=== PATIENT | male | born 1975 | race Caucasian/White ===

== ENCOUNTER 2018-04-09 12:45 | Emergency (ER) | payer OTHER ==
[2018-04-09] MEDS ORDERED: Sodium Chloride 0.9% 1,000 ML IV ONE (13:32)
--- NOTE | 2018-04-09 13:37 | EDM.PDOC ---
ED HPI GENERAL MEDICAL PROBLEM - General Chief Complaint: Chest Pain Stated Complaint: CHEST PAIN Time Seen by Provider: 04/09/18 13:12 Source of Information: Reports: Patient History Limitations: Reports: No Limitations - History of Present Illness INITIAL COMMENTS - FREE TEXT/NARRATIVE: Patient presents with pain in right anterior chest that started about 45 minutes before ER arrival and was preceded by feeling light-headed and nauseated. 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 The chest pain is exacerbated by taking a deep breath and rates it at 8/10 when it was the worst. Currently 6/10 and less between breaths. He also has a headache. He isn't good at drinking water but drinks Coke and Gatorade. Right Chest Pain Score (Numeric/FACES): 8 - Related Data Allergies Allergy/AdvReac Type Severity Reaction Status Date / Time levofloxacin [From Levaquin] Allergy Hives Verified 04/09/18 13:06 Home Meds: Home Meds Prazosin HCl [Prazosin] 2 mg PO BEDTIME 04/09/18 [History] Sertraline [Zoloft] 100 mg PO DAILY 04/09/18 [History] amLODIPine Besylate [Amlodipine Besylate] 10 mg PO DAILY 04/09/18 [History] carBAMazepine [Carbamazepine] 400 mg PO BIDMEALS 04/09/18 [History] ED ROS GENERAL - Review of Systems Review Of Systems: See Below Constitutional: Denies: Fever, Chills, Weakness HEENT: Reports: No Symptoms Respiratory: Denies: Shortness of Breath, Cough Cardiovascular: Reports: Chest Pain, Blood Pressure Problem, Lightheadedness. Denies: Syncope Endocrine: Denies: Fatigue GI/Abdominal: Reports: Nausea. Denies: Abdominal Pain, Constipation, Diarrhea, Vomiting : Denies: Dysuria, Flank Pain Musculoskeletal: Reports: No Symptoms Skin: Denies: Cyanosis, Jaundice, Mottled, Pallor, Diaphoresis Neurological: Reports: Headache. Denies: Confusion, Seizure, Syncope, Difficulty Walking, Weakness, Change in Speech Psychiatric: Denies: Agitation, Anxiety, Confusion ED EXAM, GENERAL - Physical Exam Exam: See Below Exam Limited By: No Limitations General Appearance: Alert, WD/WN, No Apparent Distress Eye Exam: Bilateral Eye: EOMI, Normal Inspection, PERRL Ears: Normal External Exam, Hearing Grossly Normal Nose: Normal Inspection, No Blood Throat/Mouth: Normal Inspection, Normal Lips, Normal Voice, No Airway Compromise Head: Atraumatic, Normocephalic Neck: Normal Inspection, Full Range of Motion Respiratory/Chest: No Respiratory Distress, No Accessory Muscle Use, Decreased Breath Sounds (right lung), Other (Palpation of right chest slightly superior to nipple reproduces his presenting chest pain although not as sharp as when taking a deep breath. Left chest non-tender.). No: Crackles, Rales, Rhonchi, Wheezing, Stridor Cardiovascular: Normal Peripheral Pulses, Regular Rate, Rhythm, No Murmur GI/Abdominal: Normal Bowel Sounds, Soft, Non-Tender, No Organomegaly, No Distention, No Abnormal Bruit Back Exam: Normal Inspection, Full Range of Motion. No: CVA Tenderness (L), CVA Tenderness (R) Extremities: Normal Inspection, Normal Range of Motion Neurological: Alert, Oriented, Normal Cognition, No Motor/Sensory Deficits Psychiatric: Normal Affect, Normal Mood Skin Exam: Warm, Dry, Intact, Normal Color (except for current sunburn on face, neck and ears), No Rash Course - Vital Signs Last Recorded V/S: Last Vital Signs Temp 98.5 F 04/09/18 13:14 Pulse 92 04/09/18 13:14 Resp 16 04/09/18 13:14 BP 150/92 H 04/09/18 13:14 Pulse Ox 96 04/09/18 13:14 - Orders/Labs/Meds Orders: Active Orders 24 hr Category Date Time Status EKG Documentation Completion [RC] ASDIRECTED Care 04/09/18 14:09 Ordered Chest 2V [CR] Stat Exams 04/09/18 13:30 Ordered EKG 12 Lead [EK] Routine Ther 04/09/18 14:08 Ordered Labs: Laboratory Tests 04/09/18 04/09/18 04/09/18 Range/Units 13:05 13:05 13:05 WBC 8.2 (5.0-10.0) 10^3/uL RBC 4.37 L (4.50-6.00) 10^6/uL Hgb 14.2 (13.0-17.0) g/dL Hct 41.0 (40.0-52.0) % MCV 93.7 H (82.0-92.0) fL MCH 32.4 H (27.0-31.0) pg MCHC 34.6 (32.0-36.0) g/dL RDW 12.3 (11.5-14.5) % Plt Count 259 (150-300) 10^3/uL MPV 7.2 L (7.4-10.4) fL Neut % (Auto) 62.7 (50.0-70.0) % Lymph % (Auto) 26.7 (20.0-40.0) % Runnels % (Auto) 8.3 H (2.0-8.0) % Eos % (Auto) 1.7 (1.0-3.0) % Baso % (Auto) 0.6 (0.0-1.0) % Neut # (Auto) 5.2 (2.5-7.0) 10^3/uL Lymph # (Auto) 2.2 (1.0-4.0) 10^3/uL Runnels # (Auto) 0.7 (0.1-0.8) 10^3/uL Eos # (Auto) 0.1 (0.1-0.3) 10^3/uL Baso # (Auto) 0.0 (0.0-0.1) 10^3/uL D-Dimer, Quantitative < 100 (<400) ng/mL Sodium 139 (136-145) mmol/L Potassium 3.2 L (3.3-5.3) mmol/L Chloride 101 (98-115) mmol/L Carbon Dioxide 27.3 (21.0-32.0) mmol/L BUN 22 (6-25) mg/dL Creatinine 1.04 (0.51-1.17) mg/dL Est Cr Clr Drug Dosing 103.63 mL/min Estimated GFR (MDRD) > 60 mL/min Glucose 123 H (70-110) mg/dL Calcium 8.5 L (8.7-10.3) mg/dL Meds: Medications Discontinued Medications Generic Name Dose Route Start Last Admin Trade Name Freq PRN Reason Stop Dose Admin Sodium Chloride 1,000 mls @ 999 mls/hr 04/09/18 13:32 04/09/18 13:39 Normal Saline IV 04/09/18 14:32 999 mls/hr .BOLUS ONE Administration - Re-Assessments/Exams Free Text/Narrative Re-Assessment/Exam: 04/09/18 14:30 CXR shows no sign of pneumothorax, effusion or infiltrate. No findings consistent with cardiac etiology. Headache and chest pain are gone now since the fluids finished up. Discussed findings and recommendations. 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 Patient discharged in stable condition. Departure - Departure Time of Disposition: 14:37 Disposition: Home, Self-Care 01 Condition: Good Clinical Impression: Anterior chest wall pain, Dehydration Heat exhaustion Qualifiers: Encounter type: initial encounter Qualified Code(s): T67.5XXA - Heat exhaustion , unspecified, initial encounter Headache Qualifiers: Headache type: unspecified Headache chronicity pattern: acute headache Intractability: not intractable Qualified Code(s): R51 - Headache - Discharge Information Instructions: Heat Exhaustion Information Referrals: PCP,Not In Area [Primary Care Provider] - Forms: ED Department Discharge Additional Instructions: 1. Drink 8-12 cups of water daily. Avoid more than one Gatorade or Coke a day. 2. Try to minimize sun exposure and make sure to get out of the sun and heat if symptoms return. 3. Don't go back to work today but you may return tomorrow if feeling okay. 4. Follow up with your PCP on Sunday if you are not feeling completely well. 5. Return to ER as needed. - My Orders Last 24 Hours: My Active Orders 04/09/18 13:30 Chest 2V [CR] Stat 04/09/18 14:08 EKG 12 Lead [EK] Routine 04/09/18 14:09 EKG Documentation Completion [RC] ASDIRECTED - Assessment/Plan Last 24 Hours: My Active Orders 04/09/18 13:30 Chest 2V [CR] Stat 04/09/18 14:08 EKG 12 Lead [EK] Routine 04/09/18 14:09 EKG Documentation Completion [RC] ASDIRECTED
[2018-04-09 13:42] LABS: CHLORIDE,CL 101 mmol/L (98-115); SODIUM,NA 139 mmol/L (136-145)
== END 2018-04-09 14:45 | disposition home or self-care (01) ==
LOC: KA.ED 12:45
DX: R07.89 Other chest pain (principal); T67.5XXA Heat exhaustion, unspecified, initial encounter; E86.0 Dehydration; R51 Headache; Z88.1 Allergy status to other antibiotic agents; Z79.899 Other long term (current) drug therapy
CPT/HCPCS: 71046; 80048; 85025; 85379; 93005; 96360; 99284; J7030